=== PATIENT | female | born 1965 | race Caucasian/White ===

== ENCOUNTER 2016-10-10 11:15 | Outpatient (RCR) | payer OTHER ==
--- NOTE | 2016-08-29 14:41 | PT/OT/ST INITIAL EVALUATION ---
[facility], [facility]. PHYSICAL/OCCUPATIONAL THERAPY [address] [place] [id number] PLAN OF CARE/ASSESSMENT FOR OUTPATIENT REHABILITATION (Complete for Initial Claims Only) 1. PATIENT'S NAME Shiloh Zapata 2. ACC. No [id number] 3. PRIMARY DX ORIF of the left ankle 4. SECONDARY DX Stiffness, wounds 5. ONSET DATE 05/24/2016 6. REFERRAL DATE 7. SOC. DATE/TIME 08/24/2016 09:04 8. PRIOR LEVEL OF FUNCTION; PERTINENT HISTORY (Prior therapy results, reason for referral.) S: Prior to therapy, the patient did consent to today's evaluation and treatment. The patient is a 51-year-old female referred to physical therapy by Dr. Davies to address status post ORIF of the left ankle. The patient does rate her overall and general health as good to excellent. The patient states in April 2016 she stepped off a ladder causing her ankle to twist and causing a tri-malleolar fracture. One week later, on 05/24/2016, the patient underwent an ORIF of the left ankle. The patient then was splinted or casted for several weeks and then was in a walking boot for some time. The patient has been out of the boot for 10 days now. The patient does state the ankle is feeling better, but does have significant increased pain and stiffness when she is first stepping on it or first walking after sitting for a prolonged period. The patient additionally has non-healing wounds on both the medial and lateral surface of the ankle. These are gradually getting better but continue to be active and open. The patient does state she notices since coming out of the boot that her left ankle does fatigue easily. She occasionally takes medication, but most of the time does not require medication in order to manage with the pain. Prior function: Includes the patient being unlimited in function including walking for exercise. 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 Current function: Currently the patient is having difficulty with stairs, of which she has to take very slowly. Prolonged standing increases her pain, as well as noticing increased swelling with this. The patient is trying to bike for exercise since she can't walk for long distances. Therapy History: No previous physical therapy has been performed for the ankle joint. No obstacles to delivery of care are observed. Maximal pain level is 3/10. The patient describes the pain as soreness. Aggravating factors include increased weightbearing and prolonged time on her feet. Relieving factors include compression. Diagnostic tests: Show a stable repair. Past medical history: Does include hypertension and menopausal. Medication list: Includes Lisinopril. The patient is not on hormone replacement. The patient's goal for physical therapy is to get normal use of her ankle back and back to walking for exercises, and additionally to get the wounds healed on her ankle. 9. INITIAL ASSESSMENT/SAFETY PRECAUTIONS/MEDICAL COMPLICATIONS (Level of function at start of care. Be specific, use objective measures, list problems.) O: APPEARANCE AND OBSERVATION: The patient presents as a middle aged female in apparently healthy condition. Upon observing her, she does have a compression stocking on the right lower extremity. The patient additionally ambulates with decreased right step length and decreased dorsiflexion on the left. The patient additionally has decreased push-off on the left with ambulation. PALPATION: With palpation, the patient is tender at the anterior ankle. None other significant tenderness is reported. SPECIAL TESTS: Include circumferential measures, which were taken in a figure-of-8 motion on the right of 53 cm, on the left 55.8 cm. Anterior drawer was 50% limited on the left and posterior drawer was 75% limited on the left. WOUND OBSERVATION: The wounds were observed today with the wound on the medial portion of the leg measuring 0.3 cm x 0.2 cm x 0.5 cm. The wounds on the lateral incision are 0.6 cm x 0.3 cm x 0.2 cm. The lateral superior wound is 0.2 cm x 0.2 cm x 0.2 cm. These wounds are comprised of 100% pale granulation. No odor and minimal serous drainage is present. RANGE OF MOTION/FLEXIBILITY: Active range of motion dorsiflexion on the right 10 degrees, on the left to neutral or 0 degrees. Plantar flexion on the right 35 degrees, on the left 24 degrees. Inversion is 30 degrees on the right, 18 degrees on the left. Eversion is 6 degrees on the right and 1 degree on the left. STRENGTH: Throughout the right hip, knee and foot are grossly 4+/5 throughout. Throughout the left hip and knee are 4/5 and throughout the left ankle grossly 2+/5. Intrinsics do test 3/5 on the left. TODAY'S TREATMENT: Following the initial evaluation, therapeutic exercise was performed and issued as a home exercise program. Manual therapy techniques were then performed including joint mobilizations throughout the left ankle. The vasopneumatic device with cold and compression was then performed to the patient. 10. INITIAL POC: (Specify procedures, modalities, short and correction goals) A: The patient presents at physical therapy with diagnosis of status post ORIF of the left ankle due to tri-malleolar fracture with resultant decreased active range of motion, decreased gait, decreased strength, and decreased activity tolerance. PROGNOSIS: This patient has a good prognosis with regular therapy attendance and compliance with home exercise program. This patient is expected to benefit from physical therapy services in order to have increased active range of motion, increased strength to return to full prior activity. GOALS: 1. The patient to be independent and compliant with home exercise program in 1 week. 2. The patient with active range of motion and left dorsiflexion at least 6 degrees in 3 weeks to allow normalized gait pattern and stair ambulation. 3. The patient with left ankle strength at least 4/5 throughout in 6 weeks to allow working a pain free shift at work. 4. The patient with a lower extremity functional index score at least 65/80 in 6 weeks to allow return to unlimited prior activity. The diagnosis, prognosis, treatment plan, risks and expected outcome were discussed with the patient and the patient did agree to today's established plan of care. P: Plan to treat the patient 2 times per week for 6 weeks in order to address status post ORIF of the left ankle secondary to tri-malleolar fracture. Therapeutic treatments to include modalities to decrease pain, inflammation and swelling. Manual therapy techniques as indicated. Therapeutic exercise targeting active range of motion and left ankle stabilization activities, gait training, balance and proprioceptive training, wound care for non-healing wounds at the medial and lateral ankle, and patient education and home exercise program to be advanced as warranted. 11. PHYSICIAN SIGNATURE ? ON FILE OR ENTER HERE: 12. DATE: I certify the need for these services furnished under this plan of care and if for partial hospitalization. 13. CERTIFICATION FROM THROUGH
[~2016-10-10 11:15] MED LIST: CALC-656 PO; LSNP10T PO; MAGN500C4 PO; MULT-954 PO; OXYC1TAB87 PO; VNL75T PO
== END 2016-11-22 | disposition home or self-care (01) ==
LOC: PT 11:15
PROVIDERS: ATTEND Orthopaedic Surgery Foot and Ankle Surgery
DX: S82.852D Displaced trimalleolar fracture of left lower leg, subsequent encounter for closed fracture with routine healing (principal); W11.XXXD Fall on and from ladder, subsequent encounter

== ENCOUNTER → 2017-02-23 | Outpatient (CLI) | payer OTHER ==
--- NOTE | 2017-02-23 13:40 | Diagnostic Imaging Report ---
PROCEDURE: US PELVIC (NON OB) TECHNIQUE: Multiple real-time grayscale images were obtained over the pelvis in various projections transabdominally. IMPRESSION: Postmenopausal bleeding. Findings: Uterus measures 8.2 x 5.6 x 4.3 cm. Endometrial stripe measures 8 mm. There is loss of the endometrial cavity of tissue planes along the lower cervix raising concern of cervical infiltrative lesion. The right ovary measures 1.7 x 1.6 x 1.2 cm. Left ovary measures 1.9 x 1.1 x 1 cm. There is normal blood flow to both ovaries. There are no adnexal masses or free fluid. IMPRESSION: Concern is raised of infiltrative process within the endometrial lining of the cervix. Further evaluation is indicated. Dictated by: Dictated on workstation # [id number]
== END ==
LOC: RAD 10:57
PROVIDERS: ATTEND Family Medicine
DX: N95.0 Postmenopausal bleeding (principal)
CPT/HCPCS: 76856

== ENCOUNTER → 2017-03-07 | Outpatient (CLI) | payer OTHER ==
[~2017-03-07] MED LIST changes: +MULT-955 PO
[2017-03-07 07:52] LABS: BASOPHILS % (AUTO) 0 % (0-2); EOSINOPHILS % (AUTO) 0 % (0-4); LYMPHOCYTES # (AUTO) 2.6 X10^3; MEAN CORPUSCULAR HEMOGLOBIN 29.3 PG (26.0-34.0); MEAN CORPUSCULAR HGB CONC 34.2 g/dL (31.0-37.0); MEAN CORPUSCULAR VOLUME 86 FL (80-100); MEAN PLATELET VOLUME 9.4 FL (6.0-9.5); MONOCYTES # (AUTO) 0.5 X10^3; MONOCYTES % (AUTO) 9 % (3-11); NEUTROPHILS # (AUTO) 2.6 X10^3; NEUTROPHILS % (AUTO) 45 % (51-67); PLATELET COUNT 276 10^3uL (150-450); WHITE BLOOD COUNT 5.68 10^3uL (4.0-11.0)
[2017-03-07 08:06] LABS: ALBUMIN 4.4 g/dL (3.4-5.0); ANION GAP 15.5 MEQ/L (3-15); CALCULATED IONIZED CALCIUM 3.9 mg/dL (3.8-4.6); TOTAL PROTEIN 7.7 g/dL (6.4-8.5)
== END ==
LOC: LAB 07:36
PROVIDERS: ATTEND Obstetrics & Gynecology
DX: N95.0 Postmenopausal bleeding (principal)
CPT/HCPCS: 36415; 80053; 81025; 85025

== ENCOUNTER 2017-03-08 06:28 | Day surgery (SDC) | payer OTHER ==
[~2017-03-08] VITALS: Ht 185.4 cm; Wt 100.9 kg
[~2017-03-08 06:28] MED LIST changes: +LACTATED RINGERS 1,000 ML IV SCH; +SODIUM CHLORIDE FLUSH 3 ML SYR IV PRN
[2017-03-08 06:36] VITALS: BP 135/87
[2017-03-08] MEDS ORDERED: LIDOCAINE 1% (XYLOCAINE) 20 ML VIAL ONE (07:05)
[2017-03-08] MEDS ORDERED: ALFENTANIL 500 MCG/ML (ALFENTA) 5 ML AMP IV ONE (07:15)
[2017-03-08] MEDS ORDERED: MIDAZOLAM 2 MG/2 ML (VERSED) VIAL ONE (07:15)
[2017-03-08] MEDS ORDERED: PROPOFOL 20 ML IV ONE (07:16)
[2017-03-08] MEDS ORDERED: ONDANSETRON 2 MG/ML (Z0FRAN) 2 ML VIAL ONE (07:22)
[2017-03-08] MEDS ORDERED: diphenhydrAMINE 50 MG/ML INJ (BENADRYL) ONE (07:22)
[2017-03-08] MEDS ORDERED: KETOROLAC 60 MG/2 ML (TORADOL) VIAL IM ONE (07:48)
[2017-03-08] MEDS ORDERED: SUCCINYLCHOLINE 20 MG/ML 10 ML VIAL ONE (07:53)
[2017-03-08] MEDS ORDERED: HYDROcodone/APAP 5 MG/325 MG (NORCO) TAB PO PRN (08:05)
--- NOTE | 2017-03-08 08:13 | Operative Report (E) ---
Operative Report (E) 03/08/17 08:07 Pre-Operative Diagnosis: Postmenopausal bleeding Post-Operative Diagnosis: Same Procedure: Hysteroscopy, endocervical curettage, dilatation and endometrial curettage Surgeon: luzma Generating Station Mechanic: none Anesthesia: General LMA EBL: 5cc Findings: Large parous cervix with uterine prolapse stage 2. Stage 2 cystocele, stage 2 rectocele. Normal endocervix on hysteroscopy. Normal thin slightly inflamed endometrium, normal uterine cavity. CHERYL MALIK MD Mar 08, 2017 08:13
--- NOTE | 2017-03-08 08:14 | Discharge Instructions (E) ---
Discharge Instructions Instructions No restrictions at home. Expect mild bleeding and cramping. Call with severe bleeding, cramping, or fevers. Doctor's Appointment End of next week. Discharge Diet: Regular CHERYL MALIK MD Mar 08, 2017 08:14
[2017-03-08 08:27] VITALS: BP 137/76
[2017-03-08 08:50] VITALS: BP 135/82
[2017-03-08 09:05] VITALS: BP 124/63
--- NOTE | 2017-03-08 09:28 | OPERATIVE REPORT ---
DATE OF OPERATION: 03/08/2017 PRE-OPERATIVE DIAGNOSIS: 1. Postmenopausal bleeding. 2. Abnormal cervical ultrasound. POST-OPERATIVE DIAGNOSIS: 1. Postmenopausal bleeding. 2. Abnormal cervical ultrasound. OPERATIVE PROCEDURE: 1. Hysteroscopy. 2. Endocervical curettage. 3. Dilatation and endometrial curettage. SURGEON: Jim Collazo MD ANESTHESIA: General LMA COMPLICATIONS: None. ESTIMATED BLOOD LOSS: 5 mL SPECIMEN: 1. Endocervix. 2. Endometrium. FINDINGS: Intraoperatively the patient was noted to have a large paracervix with a grade uterine prolapse, grade 2 cystocele and grade 2 rectocele. On hysteroscopy the endocervix was noted to be normal. The endometrial cavity was normal with a normal thin, slightly inflamed endometrium. These were separately sampled and sent for pathology. DESCRIPTION OF PROCEDURE: After confirming the validity of the informed consent, the patient was transported to the operating suite where she was placed in a dorsal lithotomy position after general anesthesia was administered without event. The patient was sterilely prepped and draped in the usual fashion. Her bladder was emptied with a straight catheter. The cervix was grasped with a single-tooth tenaculum and sounded to 8 cm. The hysteroscope was primed and passed into the endocervix and endometrial cavity with the findings as noted above. A Temens curette was used to complete an endocervical curettage, which was sent for pathologic evaluation. The internal os was then dilated slightly with serial dilators and a sharp curette was used to fractionally curettage the endometrium with a return of a small amount of tissue which was sent for pathologic evaluation as well. The cervix was released and found to be thoroughly hemostatic. All needle, sponge, and instrument counts were correct x2. The patient tolerated the procedure well and was transferred to PACU in good condition.
[2017-03-08 09:38] VITALS: BP 109/69
== END 2017-03-08 09:39 | disposition home or self-care (01) ==
LOC: ASC 06:28
PROVIDERS: ATTEND Obstetrics & Gynecology
DX: N95.0 Postmenopausal bleeding (principal); N81.4 Uterovaginal prolapse, unspecified; I10 Essential (primary) hypertension; N87.9 Dysplasia of cervix uteri, unspecified
CPT/HCPCS: 57505; 58558; J1200; J1885; J2250; J2405; J7120